=== PATIENT | female | born 1960 | race African-American/Black ===

== ENCOUNTER 2017-05-02 15:39 | Inpatient (IN) | payer OTHER ==
--- NOTE | 2017-05-02 20:31 | HP ---
CIWA Score - CIWA Score Nausea/Vomitin-Mild Nausea/No Vomiting Muscle Tremors: 4-Moderate,w/Arms Extend Anxiety: 4-Mod. Anxious/Guarded Agitation: 4-Moderately Restless Paroxysmal Sweats: 1-Minimal Palms Moist Orientation: 1-Uncertain about Date Tacttile Disturbances: 0-None Auditory Disturbances: 0-None Visual Disturbances: 0-None Headache: 0-None Present CIWA-Ar Total Score: 15 Admission ROS S - HPI Chief Complaint: WITHDRAWAL SX Allergies/Adverse Reactions: Allergies Allergy/AdvReac Type Severity Reaction Status Date / Time No Known Drug Allergies Allergy Verified 05/02/17 20:08 NKA Allergy Uncoded 05/02/17 20:08 History of Present Illness: 56 YEARS OLD FEMALE WITH LONG HISTORY OF ALCOHOL COCAINE NICOTINE DEPENDENCE DENIES MEDICAL ISSUE HAS DEPRESSION IS ADMITTED TO DETOX Exam Limitations: No Limitations - Ebola screening Have you traveled outside of the country in the last 21 days: No Have you had contact with anyone from an Ebola affected area: No Have you been sick,other than usual withdrawal symptoms: No Do you have a fever: No - Review of Systems Constitutional: Chills, Loss of Appetite, Changes in sleep, Unintentional Wgt. Loss, Unexplained wgt Loss EENT: reports: Other (EYE GLASSES) Respiratory: reports: No Symptoms reported Cardiac: reports: No Symptoms Reported GI: reports: Nausea, Poor Fluid Intake, Abdominal cramping : reports: No Symptoms Reported Musculoskeletal: reports: No Symptoms Reported Integumentary: reports: No Symptoms Reported Neuro: reports: Tremors Endocrine: reports: No Symptoms Reported Hematology: reports: No Symptoms Reported Psychiatric: reports: Judgement Intact, Depressed Other Systems: Reviewed and Negative Patient History - Patient Medical History Hx Anemia: No Hx Asthma: No Hx Chronic Obstructive Pulmonary Disease (COPD): No Hx Cancer: No Hx Cardiac Disorders: No Hx Congestive Heart Failure: No Hx Hypertension: No Hx Hypercholesterolemia: No Hx Pacemaker: No HX Cerebrovascular Accident: No Hx Seizures: No Hx Dementia: No Hx Diabetes: No Hx Gastrointestinal Disorders: No Hx Liver Disease: No Hx Genitourinary Disorders: No Hx Sexually Transmitted Disorders: No Hx Renal Disease (ESRD): No Hx Thyroid Disease: No Hx Human Immunodeficiency Virus (HIV): No Hx Hepatitis C: No Hx Depression: Yes Hx Suicide Attempt: No Hx Bipolar Disorder: No Hx Schizophrenia: No - Patient Surgical History Past Surgical History: Yes Hx Neurologic Surgery: No Hx Cataract Extraction: Yes (rt eye 03/2017) Hx Cardiac Surgery: No Hx Lung Surgery: No Hx Breast Surgery: No Hx Breast Biopsy: No Hx Abdominal Surgery: No Hx Appendectomy: No Hx Cholecystectomy: No Hx Genitourinary Surgery: No Hx Section: No Hx Orthopedic Surgery: No Hx Hysterectomy: No Anesthesia Reaction: No - PPD History Previous Implant?: No Documented Results: Negative w/proof Implanted On Prior [facility] Admission?: No PPD to be Administered?: Yes - Reproductive History Patient is a Female of Child Bearing Age (11 -55 yrs old): No Patient : No - Smoking Cessation Smoking history: Current every day smoker Have you smoked in the past 12 months: Yes Aproximately how many cigarettes per day: 20 Cigars Per Day: 0 Hx Chewing Tobacco Use: No Initiated information on smoking cessation: Yes 'Breaking Loose' booklet given: 05/02/17 - Substance & Tx. History Hx Alcohol Use: Yes Hx Substance Use: Yes Substance Use Type: Alcohol, Cocaine Hx Substance Use Treatment: Yes - Substances Abused Alcohol Route: Oral Frequency: Daily Amount used: beer- 12cans , liquor- 3pts Age of first use: 9 Date of Last Use: 05/02/17 Crack Route: Smoking Frequency: 1-2 times per week Amount used: $90- 9bags Age of first use: 23 Date of Last Use: 05/02/17 Family Disease History - Family Disease History Family Disease History: Heart Disease: Father (), Other: Father Admission Physical Exam BHS - Vital Signs Vital Signs: Vital Signs - 24 hr 05/02/17 16:59 Temperature 96 F L Pulse Rate 114 H Respiratory 20 Rate Blood Pressure 115/93 - Physical General Appearance: Yes: Nourished, Appropriately Dressed, Mild Distress, Alcohol on Breath, Tremorous, Irritable, Sweating, Anxious HEENTM: Yes: Hearing grossly Normal, Normal ENT Inspection, Normocephalic, Normal Voice Respiratory: Yes: Chest Non-Tender, Lungs Clear, Normal Breath Sounds, No Respiratory Distress, No Accessory Muscle Use Neck: Yes: Supple, Trachea in good position Breast: Yes: Breasts Symetrical Cardiology: Yes: Regular Rhythm, S1, S2, Tachycardia Abdominal: Yes: Non Tender, Soft Genitourinary: Yes: Within Normal Limits Back: Yes: Normal Inspection Musculoskeletal: Yes: Gait Steady (CANE), Back pain, Muscle Pain (LEFT LEG), Muscle weakness (LEFT LEG) Extremities: Yes: Non-Tender, Tremors, Other (LEFT LEG ARTHRITIS) Neurological: Yes: Alert, Normal Mood/Affect, Normal Response Integumentary: Yes: Warm Lymphatic: Yes: Within Normal Limits - Diagnostic (1) Alcohol dependence with uncomplicated withdrawal Current Visit: Yes Status: Acute (2) Nicotine dependence Current Visit: Yes Status: Acute Qualifiers: Nicotine product type: cigarettes Substance use status: in withdrawal Qualified Code(s): F17.213 - Nicotine dependence, cigarettes, with withdrawal (3) Depression Current Visit: Yes Status: Suspected Qualifiers: Depression Type: dysthymia Qualified Code(s): F34.1 - Dysthymic disorder (4) Use of cane as ambulatory aid Current Visit: Yes Status: Chronic Cleared for Admission [facility] - Detox or Rehab [facility] Level of Care: Medically Managed Detox Regimen/Protocol: Librium [facility] Breath Alcohol Content Breath Alcohol Content: 0.105 Vital Signs - Height Height: 5 ft 2 in - Weight Weight: 158 lb Weight Measurement Method: Standing Scale Body Mass Index (BMI): 28.9 - Bowel Function Bowel Movement: Yes Urine Pregancy Test - Result Urine Test Results: Negative- NO Line Present Urine Drug Screen - Results Drug Screen Negative: No Urine Drug Screen Results: LEWIS-Cocaine
[2017-05-02 20:37] VITALS: BMI 28.9
[2017-05-02] MEDS ORDERED: MAG HYDROX/AL HYDROX/SIMETH 30 ML UNIT-DOSE CUP PO PRN (20:39)
[2017-05-02] MEDS ORDERED: MENTHOL/PHENOL 1 EACH UD MM PRN (20:39)
[2017-05-02] MEDS ORDERED: NICOTINE POLACRILEX 4 MG GUM BC PRN (20:39)
[2017-05-02] MEDS ORDERED: chlordiazePOXIDE HCL 25 MG CAPSULE PO PRN (20:39)
[2017-05-02] MEDS ORDERED: LOPERAMIDE HCL 2 MG CAPSULE PO PRN (20:39)
[2017-05-02] MEDS ORDERED: P-EPHED 60MG/TRIPROLIDI 2.5MG TABLET PO PRN (20:39)
[2017-05-02] MEDS ORDERED: ACETAMINOPHEN 325 MG TABLET (FP) PO PRN (20:39)
[2017-05-02] MEDS ORDERED: chlordiazePOXIDE HCL 25 MG CAPSULE PO ONE (20:39)
[2017-05-02] MEDS ORDERED: guaiFENesin/D-METHORPHAN HB 10 ML UNIT-DOSE CUPS PO PRN (20:39)
[2017-05-02] MEDS ORDERED: MAGNESIUM CITRATE 300 ML BOTTLE PO PRN (20:39)
[2017-05-02] MEDS ORDERED: hydrOXYzine PAMOATE 50 MG CAPSULE (FP) PO PRN (20:39)
[2017-05-02] MEDS ORDERED: MAGNESIUM HYDROX 2400MG/30ML ORAL SUSPENSION 30 ML CUP PO PRN (20:39)
[2017-05-02] MEDS ORDERED: IBUPROFEN 400 MG TABLET (FP) PO PRN (20:39)
[2017-05-02 22:44] LABS: URINE APPEARANCE CLEAR; URINE BILIRUBIN NEGATIVE (NEGATIVE); URINE COLOR YELLOW; URINE GLUCOSE (UA) NEGATIVE (NEGATIVE); URINE KETONE NEGATIVE (NEGATIVE); URINE NITRITE NEGATIVE (NEGATIVE); URINE PROTEIN NEGATIVE (NEGATIVE); URINE UROBILINOGEN NEGATIVE E.U./dl (0.2-1.0)
[2017-05-02 22:45] LABS: URINE BLOOD 1+ (NEGATIVE); URINE LEUK ESTERASE TRACE (NEGATIVE)
[2017-05-02] MEDS: chlordiazePOXIDE HCL 25 MG CAPSULE PO SCH (22:47)
[2017-05-02 22:48] LABS: URINE BACTERIA MANY /hpf (NONE SEEN); URINE MUCUS RARE; URINE WBC 8 /hpf (3-5)
[2017-05-02] MEDS: THIAMINE HCL 100 MG TABLET (FP) PO SCH (22:48)
[2017-05-03] MEDS: chlordiazePOXIDE HCL 25 MG CAPSULE PO SCH ×4 (05:28→22:15)
--- NOTE | 2017-05-03 09:53 | EKG ---
Test Reason : Blood Pressure : / mmHG Vent. Rate : 081 BPM Atrial Rate : 081 BPM P-R Int : 170 ms QRS Dur : 060 ms QT Int : 380 ms P-R-T Axes : 073 046 046 degrees QTc Int : 441 ms NORMAL SINUS RHYTHM POOR DATA QUALITY, INTERPRETATION MAY BE ADVERSELY AFFECTED NO PREVIOUS ECGS AVAILABLE Confirmed by NAS BERRY MD ([id number]) on 05/03/2017 9:52:52 AM Referred By: Confirmed By:NAS BERRY MD
[2017-05-03 10:18] LABS: MCH 25.7 pg (25.7-33.7); MCHC 31.2 g/dl (32.0-36.0); MEAN CELL VOLUME 82.4 fl (80-96); MEAN PLT VOLUME 8.2 fl (7.5-11.1); PLATELET COUNT 249 K/MM3 (134-434); RDW 15.3 % (11.6-15.6); WHITE BLOOD COUNT 6.3 K/mm3 (4.0-10.0)
[2017-05-03] MEDS: PRENATAL VITAMINS W/ FOLIC ACID TABLET (FP) PO SCH (10:30)
[2017-05-03] MEDS: NICOTINE 21 MG/24 HOURS TOPICAL PATCH TD SCH (10:31)
[2017-05-03 10:44] LABS: ALBUMIN 3.5 g/dl (3.4-5.0); ALK PHOS 85 U/L (45-117); ANION GAP 10 (8-16); BILIRUBIN,TOTAL 0.2 mg/dL (0.2-1.0); CALCIUM 8.8 mg/dL (8.5-10.1); CO2 25 mmol/L (21-32); CREATININE 0.9 mg/dL (0.55-1.02); GLUCOSE,RANDOM 93 mg/dL (74-106); SGOT/AST 29 U/L (15-37); SGPT/ALT 60 U/L (12-78); TOT PROT 6.5 g/dl (6.4-8.2)
--- NOTE | 2017-05-03 10:53 | PN ---
S CIWA - CIWA Score Nausea/Vomitin-No Nausea/No Vomiting Muscle Tremors: 4-Moderate,w/Arms Extend Anxiety: 3 Agitation: 4-Moderately Restless Paroxysmal Sweats: 3 Orientation: 0-Oriented Tacttile Disturbances: 0-None Auditory Disturbances: 0-None Visual Disturbances: 0-None Headache: 0-None Present CIWA-Ar Total Score: 14 BHS Progress Note (SOAP) Subjective: body aches sweats interrupted sleep agitation Objective: 05/03/17 11:03 Vital Signs Temperature 98.2 F 05/03/17 10:15 Pulse Rate 78 05/03/17 10:15 Respiratory Rate 18 05/03/17 10:15 Blood Pressure 114/76 05/03/17 10:15 O2 Sat by Pulse Oximetry (%) Laboratory Tests 05/02/17 05/03/17 05/03/17 21:34 07:50 07:50 WBC 6.3 RBC 4.58 Hgb 11.8 Hct 37.8 MCV 82.4 MCHC 31.2 L RDW 15.3 Plt Count 249 MPV 8.2 Sodium 142 Potassium 4.0 Chloride 107 Carbon Dioxide 25 Anion Gap 10 BUN 13 Creatinine 0.9 Creat Clearance w eGFR > 60 Random Glucose 93 Calcium 8.8 Total Bilirubin 0.2 AST 29 ALT 60 Alkaline Phosphatase 85 Total Protein 6.5 Albumin 3.5 Urine Color Yellow Urine Appearance Clear Urine pH 5.0 Ur Specific [place] 1.015 Urine Protein Negative Urine Glucose (UA) Negative Urine Ketones Negative Urine Blood 1+ H Urine Nitrite Negative Urine Bilirubin Negative Urine Urobilinogen Negative Ur Leukocyte Esterase Trace H Urine RBC None Urine WBC 8 Ur Epithelial Cells Rare Urine Bacteria Many Urine Mucus Rare awake/alert ambulating no acute distress Assessment: 05/03/17 11:03 withdrawal sx Plan: continue detox increase fluids
--- NOTE | 2017-05-03 17:53 | CONSULT ---
[facility] Psychiatric Consult - Data Date of interview: 05/03/17 Admission source: [facility] Identifying data: First admission to [facility] for this 56 y/o AA female seeking detox treatment for alcohol and cocaine dependence.Patient is ,a mother of four,domiciled,unemployed and supported on Public Assistance. Substance Abuse History: - Smoking Cessation. Smoking history: Current every day smoker. Have you smoked in the past 12 months: Yes. Aproximately how many cigarettes per day: 20. Cigars Per Day: 0. Hx Chewing Tobacco Use: No. Initiated information on smoking cessation: Yes. 'Breaking Loose' booklet given : 05/02/17. - Substance & Tx. History. Hx Alcohol Use: Yes. Hx Substance Use : Yes. Substance Use Type: Alcohol, Cocaine. Hx Substance Use Treatment: Yes. - Substances Abused. Alcohol. Route: Oral. Frequency: Daily. Amount used: beer- 12cans , liquor- 3pts. Age of first use: 9. Date of Last Use: 12/18. Crack. Route: Smoking. Frequency: 1-2 times per week. Amount used : $90- 9bags. Age of first use: 23. Date of Last Use: 05/02/17. Drug Screen Negative: Yes. Confirmed by the patient. 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 Psychiatric History: No reported history of psychiatric hospitalizations (only CPEP visits at [facility]).No history of OPD care.Ms Nunez denies history of suicide attempts. Physical/Sexual Abuse/Trauma History: Patient denies history of abuse. Mental Status Exam - Mental Status Exam Alert and Oriented to: Time, Place, Person Cognitive Function: Good Patient Appearance: Well Groomed Mood: Hopeful, Euthymic Affect: Normal Range Patient Behavior: Fatigued, Appropriate, Cooperative Speech Pattern: Clear Voice Loudness: Normal Thought Process: Goal Oriented Thought Disorder: Not Present Hallucinations: Denies Suicidal Ideation: Denies Homicidal Ideation: Denies Insight/Judgement: Poor Sleep: Fair Appetite: Good Muscle strength/Tone: Normal Gait/Station: Normal Psychiatric Findings - Problem List ([place] 1, 2,3) (1) Alcohol dependence with uncomplicated withdrawal Current Visit: Yes Status: Acute (2) Cocaine dependence Current Visit: Yes Status: Acute (3) Nicotine dependence Current Visit: Yes Status: Acute Qualifiers: Nicotine product type: cigarettes Substance use status: in withdrawal Qualified Code(s): F17.213 - Nicotine dependence, cigarettes, with withdrawal (4) Substance induced mood disorder Current Visit: Yes Status: Acute (5) Use of cane as ambulatory aid Current Visit: Yes Status: Chronic - Initial Treatment Plan Initial Treatment Plan: Psychoeducation.Detoxification.Observation.
[2017-05-03] MEDS: THIAMINE HCL 100 MG TABLET (FP) PO SCH (22:14)
[2017-05-03] MEDS: diphenhydrAMINE HCL 50 MG CAPSULE PO PRN (22:15)
[2017-05-04] MEDS: chlordiazePOXIDE HCL 25 MG CAPSULE PO SCH ×3 (05:28→17:28)
[2017-05-04] MEDS: PRENATAL VITAMINS W/ FOLIC ACID TABLET (FP) PO SCH (10:40)
[2017-05-04] MEDS: NICOTINE 21 MG/24 HOURS TOPICAL PATCH TD SCH (10:41)
--- NOTE | 2017-05-04 15:49 | PN ---
[facility] CIWA - CIWA Score Nausea/Vomitin-No Nausea/No Vomiting Muscle Tremors: 3 Anxiety: 4-Mod. Anxious/Guarded Agitation: 3 Paroxysmal Sweats: 3 Orientation: 0-Oriented Tacttile Disturbances: 0-None Auditory Disturbances: 0-None Visual Disturbances: 0-None Headache: 0-None Present CIWA-Ar Total Score: 13 S Progress Note (SOAP) Subjective: Sweating,interrupted sleep,anxiety,tremors,restless. Objective: 05/04/17 15:48 Vital Signs - 8 hr 05/04/17 05/04/17 10:00 14:22 Temperature 98.4 F 97.9 F Pulse Rate 87 90 Respiratory 18 18 Rate Blood Pressure 125/72 130/79 Laboratory Last Values WBC 6.3 K/mm3 (4.0-10.0) 05/03/17 07:50 RBC 4.58 M/mm3 (3.60-5.2) 05/03/17 07:50 Hgb 11.8 GM/dL (10.7-15.3) 05/03/17 07:50 Hct 37.8 % (32.4-45.2) 05/03/17 07:50 MCV 82.4 fl (80-96) 05/03/17 07:50 MCHC 31.2 g/dl (32.0-36.0) L 05/03/17 07:50 RDW 15.3 % (11.6-15.6) 05/03/17 07:50 Plt Count 249 K/MM3 (134-434) 05/03/17 07:50 MPV 8.2 fl (7.5-11.1) 05/03/17 07:50 Sodium 142 mmol/L (136-145) 05/03/17 07:50 Potassium 4.0 mmol/L (3.5-5.1) 05/03/17 07:50 Chloride 107 mmol/L (98-107) 05/03/17 07:50 Carbon Dioxide 25 mmol/L (21-32) 05/03/17 07:50 Anion Gap 10 (8-16) 05/03/17 07:50 BUN 13 mg/dL (7-18) 05/03/17 07:50 Creatinine 0.9 mg/dL (0.55-1.02) 05/03/17 07:50 Creat Clearance w eGFR > 60 (>60) 05/03/17 07:50 Random Glucose 93 mg/dL (74-106) 05/03/17 07:50 Calcium 8.8 mg/dL (8.5-10.1) 05/03/17 07:50 Total Bilirubin 0.2 mg/dL (0.2-1.0) 05/03/17 07:50 AST 29 U/L (15-37) 05/03/17 07:50 ALT 60 U/L (12-78) 05/03/17 07:50 Alkaline Phosphatase 85 U/L (45-117) 05/03/17 07:50 Total Protein 6.5 g/dl (6.4-8.2) 05/03/17 07:50 Albumin 3.5 g/dl (3.4-5.0) 05/03/17 07:50 Urine Color Yellow 05/02/17 21:34 Urine Appearance Clear 05/02/17 21:34 Urine pH 5.0 (5.0-8.0) 05/02/17 21:34 Ur Specific [place] 1.015 (1.005-1.025) 05/02/17 21:34 Urine Protein Negative (NEGATIVE) 05/02/17 21:34 Urine Glucose (UA) Negative (NEGATIVE) 05/02/17 21:34 Urine Ketones Negative (NEGATIVE) 05/02/17 21:34 Urine Blood 1+ (NEGATIVE) H 05/02/17 21:34 Urine Nitrite Negative (NEGATIVE) 05/02/17 21:34 Urine Bilirubin Negative (NEGATIVE) 05/02/17 21:34 Urine Urobilinogen Negative E.U./dl (0.2-1.0) 05/02/17 21:34 Ur Leukocyte Esterase Trace (NEGATIVE) H 05/02/17 21:34 Urine RBC None /hpf (0-3) 05/02/17 21:34 Urine WBC 8 /hpf (3-5) 05/02/17 21:34 Ur Epithelial Cells Rare /hpf (FEW) 05/02/17 21:34 Urine Bacteria Many /hpf (NONE SEEN) 05/02/17 21:34 Urine Mucus Rare 05/02/17 21:34 RPR Titer Nonreactive (NONREACTIVE) 05/03/17 07:50 labs noted Assessment: 05/04/17 15:48 Withdrawal sx. Plan: Continue detox
[2017-05-04] MEDS: THIAMINE HCL 100 MG TABLET (FP) PO SCH (22:15)
[2017-05-04] MEDS: chlordiazePOXIDE 5 MG CAPSULE PO SCH (22:15)
[2017-05-05] MEDS: chlordiazePOXIDE 5 MG CAPSULE PO SCH ×3 (05:40→17:33)
[2017-05-05] MEDS: PRENATAL VITAMINS W/ FOLIC ACID TABLET (FP) PO SCH (10:05)
[2017-05-05] MEDS: NICOTINE 21 MG/24 HOURS TOPICAL PATCH TD SCH (10:07)
[2017-05-05 11:16] LABS: URINE APPEARANCE CLEAR; URINE BILIRUBIN NEGATIVE (NEGATIVE); URINE BLOOD NEGATIVE (NEGATIVE); URINE COLOR LTYELLOW; URINE GLUCOSE (UA) NEGATIVE (NEGATIVE); URINE KETONE NEGATIVE (NEGATIVE); URINE NITRITE NEGATIVE (NEGATIVE); URINE PROTEIN NEGATIVE (NEGATIVE); URINE UROBILINOGEN NEGATIVE E.U./dl (0.2-1.0)
[2017-05-05 11:35] LABS: URINE LEUK ESTERASE TRACE (NEGATIVE)
[2017-05-05 11:37] LABS: URINE BACTERIA MANY /hpf (NONE SEEN); URINE RBC 1 /hpf (0-3); URINE WBC 3 /hpf (3-5)
--- NOTE | 2017-05-05 12:10 | PN ---
BHS Progress Note (SOAP) Subjective: Sweating,interrupted sleep,restless Objective: 05/05/17 12:06 Vital Signs - 8 hr 05/05/17 05/05/17 06:00 09:56 Temperature 98.1 F 97.7 F Pulse Rate 89 97 H Respiratory 18 18 Rate Blood Pressure 126/75 118/65 Laboratory Tests 05/02/17 05/03/17 05/03/17 21:34 07:50 07:50 WBC 6.3 RBC 4.58 Hgb 11.8 Hct 37.8 MCV 82.4 MCHC 31.2 L RDW 15.3 Plt Count 249 MPV 8.2 Sodium 142 Potassium 4.0 Chloride 107 Carbon Dioxide 25 Anion Gap 10 BUN 13 Creatinine 0.9 Creat Clearance w eGFR > 60 Random Glucose 93 Calcium 8.8 Total Bilirubin 0.2 AST 29 ALT 60 Alkaline Phosphatase 85 Total Protein 6.5 Albumin 3.5 Urine Color Yellow Urine Appearance Clear Urine pH 5.0 Ur Specific [place] 1.015 Urine Protein Negative Urine Glucose (UA) Negative Urine Ketones Negative Urine Blood 1+ H Urine Nitrite Negative Urine Bilirubin Negative Urine Urobilinogen Negative Ur Leukocyte Esterase Trace H Urine RBC None Urine WBC 8 Ur Epithelial Cells Rare Urine Bacteria Many Urine Mucus Rare RPR Titer 05/03/17 05/05/17 07:50 07:45 WBC RBC Hgb Hct MCV MCHC RDW Plt Count MPV Sodium Potassium Chloride Carbon Dioxide Anion Gap BUN Creatinine Creat Clearance w eGFR Random Glucose Calcium Total Bilirubin AST ALT Alkaline Phosphatase Total Protein Albumin Urine Color L[place] Urine Appearance Clear Urine pH 5.0 Ur Specific [place] Urine Protein Negative Urine Glucose (UA) Negative Urine Ketones Negative Urine Blood Negative Urine Nitrite Negative Urine Bilirubin Negative Urine Urobilinogen Negative Ur Leukocyte Esterase Trace H Urine RBC 1 Urine WBC 3 Ur Epithelial Cells Urine Bacteria Many Urine Mucus RPR Titer Nonreactive labs noted Assessment: 05/05/17 12:07 Withdrawal sx. R/O UTI Plan: Continue detox pyridium 200mg daily
[2017-05-05] MEDS ORDERED: PHENAZOPYRIDINE HCL 100 MG TABLET (FP) PO SCH (13:00)
[2017-05-05] MEDS: PHENAZOPYRIDINE HCL 100 MG TABLET (FP) PO SCH (17:37)
[2017-05-05] MEDS: diphenhydrAMINE HCL 50 MG CAPSULE PO PRN (22:16)
[2017-05-05] MEDS: THIAMINE HCL 100 MG TABLET (FP) PO SCH (22:16)
[2017-05-05] MEDS: chlordiazePOXIDE HCL 10 MG CAPSULE PO SCH (22:16)
[2017-05-06] MEDS: chlordiazePOXIDE HCL 10 MG CAPSULE PO SCH ×2 (05:11→10:26)
--- NOTE | 2017-05-06 08:19 | DS ---
[facility] Detox Discharge Summary Admission Date: 05/02/17 Discharge Date: 05/06/17 - History Present History: Alcohol Dependence, Cocaine Dependence - Physical Exam Results Vital Signs: Vital Signs Temperature 96.8 F L 05/06/17 06:43 Pulse Rate 89 05/06/17 06:43 Respiratory Rate 20 05/06/17 06:43 Blood Pressure 107/75 05/06/17 06:43 O2 Sat by Pulse Oximetry (%) - Treatment Hospital Course: Detox Protocol Followed, Detoxed Safely, Responded well, Discharged Condition Good, Rehab Referral Accepted - Medication Discharge Medications: Ambulatory Orders NK [No Known Home Medication] 05/02/17 - Diagnosis (1) Alcohol dependence with uncomplicated withdrawal Current Visit: Yes Status: Chronic (2) Cocaine dependence Current Visit: Yes Status: Chronic Qualifiers: Substance use status: uncomplicated Qualified Code(s): F14.20 - Cocaine dependence, uncomplicated (3) Nicotine dependence Current Visit: Yes Status: Chronic Qualifiers: Nicotine product type: cigarettes Substance use status: uncomplicated Qualified Code(s): F17.210 - Nicotine dependence, cigarettes, uncomplicated (4) Substance induced mood disorder Current Visit: Yes Status: Acute (5) Use of cane as ambulatory aid Current Visit: Yes Status: Chronic (6) Depression Current Visit: Yes Status: Suspected Qualifiers: Depression Type: dysthymia Qualified Code(s): F34.1 - Dysthymic disorder - AMA Did Patient Leave Against Medical Advice: No
[2017-05-06] MEDS: NICOTINE 21 MG/24 HOURS TOPICAL PATCH TD SCH (10:25)
[2017-05-06] MEDS: PHENAZOPYRIDINE HCL 100 MG TABLET (FP) PO SCH (10:26)
[2017-05-06] MEDS: PRENATAL VITAMINS W/ FOLIC ACID TABLET (FP) PO SCH (10:26)
[2017-05-06 10:29] VITALS: BP 137/85; PULSE 95; TEMP 96.7
== END 2017-05-06 11:45 | disposition other institution (70) | DRG 774 ==
LOC: YASAS 15:39 → Y6N 20:36
PROVIDERS: ADMIT Internal Medicine; ATTEND Internal Medicine
PROC: HZ2ZZZZ Detoxification Services for Substance Abuse Treatment (ICD-10-PCS; principal; 2017-05-06)
DX: F10.230 Alcohol dependence with withdrawal, uncomplicated (principal); F14.20 Cocaine dependence, uncomplicated; F17.210 Nicotine dependence, cigarettes, uncomplicated; F19.24 Other psychoactive substance dependence with psychoactive substance-induced mood disorder; F34.1 Dysthymic disorder; R26.89 Other abnormalities of gait and mobility; Z99.89 Dependence on other enabling machines and devices
CPT/HCPCS: 36415; 80053; 81003; 81015; 85027; 86593; 87086; 87186; 93005; 93010

== ENCOUNTER 2017-05-06 12:04 | Inpatient (IN) | payer OTHER ==
--- NOTE | 2017-05-06 14:03 | HP ---
Psychiatrist Admission - Data Date of interview: 05/06/17 Admission source: [address] [place] [address] Identifying data: This is the first admission to [address] [place] [address] for this 56 years old AA ,mother of 4 grown children, resides with ,supported by [place]. Medical History: Blindness of R eye (cataract removal). Psychiatric History: denies previous psychiatric history Physical/Sexual Abuse/Trauma History: denies Vital Signs: Vital Signs - 24 hr 05/06/17 12:51 Temperature 97.8 F Pulse Rate 98 H Respiratory 18 Rate Blood Pressure 101/70 Allergies/Adverse Reactions: Allergies Allergy/AdvReac Type Severity Reaction Status Date / Time No Known Drug Allergies Allergy Verified 05/02/17 20:08 NKA Allergy Uncoded 05/02/17 20:08 Date of last physical exam: 05/02/17 Concur with the findings of this exam: Yes - Substance Abuse/Tx History Hx Alcohol Use: Yes (reports drinking since 9 yo,heavy drinker) Hx Substance Use: Yes (cocaine since 23 yo,daily user recently) Substance Use Type: Alcohol, Cocaine Hx Substance Use Treatment: Yes (completed intermission coordinator inpatient 10 yo,longest abstinence 3-4 years) - Admission Criteria Previous failed treatment: Yes Poor recovery environment: Yes Comorbidities: Yes Lacks judgement: Yes Mental Status Exam - Mental Status Exam Alert and Oriented to: Time, Place, Person Cognitive Function: Grossly Intact Patient Appearance: Well Groomed Mood: Sad Affect: Labile Patient Behavior: Cooperative Speech Pattern: Clear Voice Loudness: Normal Thought Process: Goal Oriented Thought Disorder: Not Present Hallucinations: Denies Suicidal Ideation: Denies Homicidal Ideation: Denies Insight/Judgement: Fair Sleep: Fair Appetite: Good Muscle strength/Tone: Normal Gait/Station: Normal Psychiatric Findings - Problem List ([place] 1, 2,3) (1) Substance induced mood disorder Current Visit: Yes Status: Chronic (2) Alcohol dependence with uncomplicated withdrawal Current Visit: Yes Status: Chronic (3) Cocaine dependence Current Visit: Yes Status: Chronic Qualifiers: (4) Nicotine dependence Current Visit: Yes Status: Chronic Qualifiers: - Initial Treatment Plan Initial Treatment Plan: Will monitor progress.
[2017-05-06] MEDS ORDERED: ACETAMINOPHEN 325 MG TABLET (FP) PO PRN (14:10)
[2017-05-06] MEDS ORDERED: P-EPHED 60MG/TRIPROLIDI 2.5MG TABLET PO PRN (14:10)
[2017-05-06] MEDS ORDERED: NICOTINE POLACRILEX 2 MG GUM BUC PRN (14:10)
[2017-05-06] MEDS ORDERED: MAGNESIUM HYDROX 2400MG/30ML ORAL SUSPENSION 30 ML CUP PO PRN (14:10)
[2017-05-06] MEDS ORDERED: guaiFENesin/D-METHORPHAN HB 10 ML UNIT-DOSE CUPS PO PRN (14:10)
[2017-05-06] MEDS ORDERED: MAGNESIUM CITRATE 300 ML BOTTLE PO PRN (14:10)
[2017-05-06] MEDS ORDERED: MAG HYDROX/AL HYDROX/SIMETH 30 ML UNIT-DOSE CUP PO PRN (14:10)
[2017-05-06] MEDS ORDERED: LOPERAMIDE HCL 2 MG CAPSULE PO PRN (14:10)
[2017-05-06] MEDS ORDERED: MENTHOL/PHENOL 1 EACH UD MM PRN (14:10)
[2017-05-06] MEDS ORDERED: diphenhydrAMINE HCL 50 MG CAPSULE PO PRN (14:10)
--- NOTE | 2017-05-06 14:16 | HP ---
<Yuliet Yanez - Last Filed: 05/06/17 16:20> [facility] Rehab Assess/Revision - Vital signs Vital Signs: Vital Signs Period Temp Pulse Resp BP Sys/Adame Pulse Ox Last 24 Hr 97.8 F 98 18 101/70 <Chris De - Last Filed: 05/08/17 12:16> [facility] Rehab Assess/Revision - Admission History Admitted to Rehab from: [facility] [place] Date of Admission to Rehab: 05/06/17 - Vital signs Vital Signs: Vital Signs Period Temp Pulse Resp BP Sys/Adame Pulse Ox Last 24 Hr 97.8 F 98 18 101/70 - Findings Detox History & Physical reviewed: Yes Concur with findings: Yes
[2017-05-06] MEDS: IBUPROFEN 400 MG TABLET (FP) PO PRN (18:40)
[2017-05-06] MEDS: SULFAMETHOXAZOLE/TRIMETHOPRIM 800MG/160MG D.S. TABLET PO SCH (21:19)
[2017-05-06] MEDS: CALCIUM 500MG/VIT-D 200 UNITS COMBO TABLET (FP) PO SCH (21:19)
[2017-05-06] MEDS: THIAMINE HCL 100 MG TABLET (FP) PO SCH (21:19)
[2017-05-07] MEDS: PHENAZOPYRIDINE HCL 100 MG TABLET (FP) PO SCH ×3 (10:10→18:30)
[2017-05-07] MEDS: NICOTINE 21 MG/24 HOURS TOPICAL PATCH TD SCH (10:10)
[2017-05-07] MEDS: SULFAMETHOXAZOLE/TRIMETHOPRIM 800MG/160MG D.S. TABLET PO SCH ×2 (10:10→21:17)
[2017-05-07] MEDS: PRENATAL VITAMINS W/ FOLIC ACID TABLET (FP) PO SCH (10:10)
[2017-05-07] MEDS: CALCIUM 500MG/VIT-D 200 UNITS COMBO TABLET (FP) PO SCH ×2 (10:10→21:17)
[2017-05-07] MEDS ORDERED: PT OWN MED DRAWER 7, Y5N ONE (11:47)
[2017-05-07] MEDS ORDERED: PNEUMOCOCCAL 23 VACCINE 0.5 ML VIAL IM ONE (12:00)
[2017-05-07] MEDS ORDERED: PNEUMOC 13-VAL CONJ-DIP CRM/PF 0.5 ML DISP.SYRIN IM ONE (12:28)
[2017-05-07] MEDS: THIAMINE HCL 100 MG TABLET (FP) PO SCH (21:18)
[2017-05-08] MEDS: IBUPROFEN 400 MG TABLET (FP) PO PRN (06:21)
[2017-05-08] MEDS: PHENAZOPYRIDINE HCL 100 MG TABLET (FP) PO SCH ×3 (10:00→18:20)
[2017-05-08] MEDS: SULFAMETHOXAZOLE/TRIMETHOPRIM 800MG/160MG D.S. TABLET PO SCH ×2 (10:11→21:16)
[2017-05-08] MEDS: CALCIUM 500MG/VIT-D 200 UNITS COMBO TABLET (FP) PO SCH ×2 (10:11→21:16)
[2017-05-08] MEDS: PRENATAL VITAMINS W/ FOLIC ACID TABLET (FP) PO SCH (10:11)
[2017-05-08] MEDS: NICOTINE 21 MG/24 HOURS TOPICAL PATCH TD SCH (10:12)
--- NOTE | 2017-05-08 14:35 | PN ---
BHS Progress Note Note: Pain left 1st toe Exam : Small blister like on lateral side of 1st toe left foot. P : Bacitracin oin't
[2017-05-08 14:55] LABS: HIV 1 & 2 AB NEGATIVE; HIV 1 AGp24 NEGATIVE
[2017-05-08] MEDS ORDERED: BACITRACIN 0.9 GM PACKET TP ONE (14:56)
--- NOTE | 2017-05-08 15:22 | PN ---
Psychiatric Progress Note Vital Signs: Vital Signs Period Temp Pulse Resp BP Sys/Adame Pulse Ox Last 24 Hr 97.6 F 92 18-18 113/78 Date of Session: 05/08/17 Chief Complaint:: Ed not sleeping all night long." HPI: Patient addressed alcohol and Cocaine dependence comorbid with Substance induced mood disorder. ROS: unremarkable Current Medications: Active Medications Generic Name Dose Route Start Last Admin Trade Name Freq PRN Reason Stop Dose Admin Acetaminophen 650 mg 05/06/17 14:10 Tylenol - PO Q4H PRN FEVER OR PAIN Al Hydroxide/Mg Hydroxide 30 ml 05/06/17 14:10 Mylanta Oral Suspension - PO Q6H PRN DYSPEPSIA Bacitracin 0.9 gm 05/08/17 22:00 Bacitracin - TP BID ESTEFANY Calcium Carbonate/Cholecalciferol 1 tab 05/06/17 22:00 05/08/17 10:11 Os-Jeff 500+D - PO 1 tab BID ESTEFANY Administration Diphenhydramine HCl 50 mg 05/06/17 14:10 05/07/17 21:17 Benadryl - PO 50 mg HSMR1 PRN Administration FOR ITCHING Eucalyptus/Menthol/Phenol/Sorbitol 1 each 05/06/17 14:10 Cepastat Lozenge - MM Q4H PRN SORE THROAT Guaifenesin 10 ml 05/06/17 14:10 Robitussin Dm - PO Q6H PRN COUGH Ibuprofen 800 mg 05/08/17 14:32 Motrin - PO Q6H PRN PAIN Loperamide HCl 4 mg 05/06/17 14:10 Imodium - PO Q6H PRN DIARRHEA Magnesium Hydroxide 30 ml 05/06/17 14:10 Milk Of Magnesia - PO DAILY PRN CONSTIPATION Nicotine 21 mg 05/07/17 10:00 05/08/17 10:12 Nicoderm Patch - TD 21 mg DAILY ESTEFANY Administration Nicotine Polacrilex 2 mg 05/06/17 14:10 Nicorette Gum - BUC Q2H PRN NICOTINE REPLACEMENT RX Phenazopyridine HCl 100 mg 05/07/17 10:00 05/08/17 12:02 Pyridium - PO 100 mg PC ESTEFANY Administration Multivit/Folic Acid/Iron 1 tab 05/07/17 10:00 05/08/17 10:11 Vitamins (Sjr) - PO 1 tab DAILY ESTEFANY Administration Pseudoephedrine/Triprolidine 1 combo 05/06/17 14:10 Actifed - PO TID PRN NASAL CONGESTION Thiamine HCl 100 mg 05/06/17 22:00 05/07/17 21:18 Vitamin B1 - PO 100 mg HS ESTEFANY Administration Trazodone HCl 100 mg 05/08/17 22:00 Desyrel - PO HS ESTEFANY Trimethoprim/Sulfamethoxazole 1 each 05/06/17 22:00 05/08/17 10:11 Bactrim Ds - PO 1 each BID ESTEFANY Administration Current Side Effect: No Lab tests ordered: No Lab tests reviewed: Yes Provider note:: Samson was revuewed,patient was evaluated in my office today due to ongoing sleeping difficulties.according to her it takes time to fall asleep and still sleep is very interrupted.She reports that she used to medicate herself with drugs and alcohol to struggle with sleeping difficulties.Properties of Trazodone has been discussed with the patient including side effects,benefits and dose adjustment.Patient is willing to start Trazodone 100 mg po hs. Suppotive therapy provided. Total face to face time:: 30 Mental Status Exam - Mental Status Exam Alert and Oriented to: Time, Place, Person Cognitive Function: Grossly Intact Patient Appearance: Unkempt Mood: Anxious Affect: Mood Congruent, Labile Patient Behavior: Cooperative Speech Pattern: Clear Voice Loudness: Normal Thought Process: Goal Oriented Thought Disorder: Not Present Hallucinations: Denies Suicidal Ideation: Denies Homicidal Ideation: Denies Insight/Judgement: Fair Sleep: Fair Appetite: Good Muscle strength/Tone: Normal Gait/Station: Normal Psychiatric Treatment Plan - Problem List (1) Substance induced mood disorder Current Visit: Yes (2) Alcohol dependence with uncomplicated withdrawal Current Visit: Yes (3) Cocaine dependence Current Visit: Yes Qualifiers: (4) Nicotine dependence Current Visit: Yes Qualifiers:
[2017-05-08] MEDS ORDERED: PT OWN MED DRAWER 7, Y5N ONE (18:04)
[2017-05-08] MEDS: THIAMINE HCL 100 MG TABLET (FP) PO SCH (21:16)
[2017-05-08] MEDS: BACITRACIN 0.9 GM PACKET TP SCH (21:17)
[2017-05-08] MEDS: traZODone HCL 100 MG TABLET (FP) PO SCH (21:18)
[2017-05-09] MEDS: PHENAZOPYRIDINE HCL 100 MG TABLET (FP) PO SCH ×3 (09:58→18:25)
[2017-05-09] MEDS: NICOTINE 21 MG/24 HOURS TOPICAL PATCH TD SCH (09:59)
[2017-05-09] MEDS: SULFAMETHOXAZOLE/TRIMETHOPRIM 800MG/160MG D.S. TABLET PO SCH ×2 (09:59→21:08)
[2017-05-09] MEDS: PRENATAL VITAMINS W/ FOLIC ACID TABLET (FP) PO SCH (09:59)
[2017-05-09] MEDS: BACITRACIN 0.9 GM PACKET TP SCH ×2 (09:59→21:10)
[2017-05-09] MEDS: CALCIUM 500MG/VIT-D 200 UNITS COMBO TABLET (FP) PO SCH ×2 (10:00→21:08)
[2017-05-09] MEDS: THIAMINE HCL 100 MG TABLET (FP) PO SCH (21:08)
[2017-05-09] MEDS: traZODone HCL 100 MG TABLET (FP) PO SCH (21:08)
[2017-05-10] MEDS ORDERED: PT OWN MED DRAWER 7, Y5N ONE ×2 (08:18→16:50)
[2017-05-10] MEDS: CALCIUM 500MG/VIT-D 200 UNITS COMBO TABLET (FP) PO SCH ×2 (09:58→21:24)
[2017-05-10] MEDS: PRENATAL VITAMINS W/ FOLIC ACID TABLET (FP) PO SCH (09:58)
[2017-05-10] MEDS: NICOTINE 21 MG/24 HOURS TOPICAL PATCH TD SCH (09:58)
[2017-05-10] MEDS: BACITRACIN 0.9 GM PACKET TP SCH ×2 (09:58→21:24)
[2017-05-10] MEDS: PHENAZOPYRIDINE HCL 100 MG TABLET (FP) PO SCH ×3 (09:58→17:52)
[2017-05-10] MEDS: SULFAMETHOXAZOLE/TRIMETHOPRIM 800MG/160MG D.S. TABLET PO SCH ×2 (09:58→21:24)
[2017-05-10] MEDS: THIAMINE HCL 100 MG TABLET (FP) PO SCH (21:24)
[2017-05-10] MEDS: traZODone HCL 100 MG TABLET (FP) PO SCH (21:24)
[2017-05-11] MEDS ORDERED: PT OWN MED DRAWER 7, Y5N ONE ×3 (08:39→13:11)
[2017-05-11] MEDS: PRENATAL VITAMINS W/ FOLIC ACID TABLET (FP) PO SCH (10:13)
[2017-05-11] MEDS: CALCIUM 500MG/VIT-D 200 UNITS COMBO TABLET (FP) PO SCH ×2 (10:13→21:18)
[2017-05-11] MEDS: PHENAZOPYRIDINE HCL 100 MG TABLET (FP) PO SCH ×3 (10:13→17:20)
[2017-05-11] MEDS: NICOTINE 21 MG/24 HOURS TOPICAL PATCH TD SCH (10:13)
[2017-05-11] MEDS: SULFAMETHOXAZOLE/TRIMETHOPRIM 800MG/160MG D.S. TABLET PO SCH ×2 (10:13→21:18)
[2017-05-11] MEDS: BACITRACIN 0.9 GM PACKET TP SCH ×2 (10:13→21:19)
[2017-05-11] MEDS: traZODone HCL 100 MG TABLET (FP) PO SCH (21:18)
[2017-05-11] MEDS: THIAMINE HCL 100 MG TABLET (FP) PO SCH (21:18)
[2017-05-12] MEDS ORDERED: PT OWN MED DRAWER 7, Y5N ONE (08:54)
[2017-05-12] MEDS: NICOTINE 21 MG/24 HOURS TOPICAL PATCH TD SCH (09:51)
[2017-05-12] MEDS: PRENATAL VITAMINS W/ FOLIC ACID TABLET (FP) PO SCH (09:51)
[2017-05-12] MEDS: PHENAZOPYRIDINE HCL 100 MG TABLET (FP) PO SCH ×3 (09:51→17:30)
[2017-05-12] MEDS: CALCIUM 500MG/VIT-D 200 UNITS COMBO TABLET (FP) PO SCH ×2 (09:51→21:14)
[2017-05-12] MEDS: BACITRACIN 0.9 GM PACKET TP SCH ×2 (09:51→21:16)
[2017-05-12] MEDS: SULFAMETHOXAZOLE/TRIMETHOPRIM 800MG/160MG D.S. TABLET PO SCH ×2 (10:31→21:16)
[2017-05-12] MEDS: IBUPROFEN 400 MG TABLET (FP) PO PRN (12:06)
[2017-05-12] MEDS: THIAMINE HCL 100 MG TABLET (FP) PO SCH (21:14)
[2017-05-12] MEDS: traZODone HCL 100 MG TABLET (FP) PO SCH (21:14)
[2017-05-13] MEDS ORDERED: PT OWN MED DRAWER 7, Y5N ONE (08:51)
[2017-05-13] MEDS: CALCIUM 500MG/VIT-D 200 UNITS COMBO TABLET (FP) PO SCH ×2 (10:20→21:17)
[2017-05-13] MEDS: PRENATAL VITAMINS W/ FOLIC ACID TABLET (FP) PO SCH (10:20)
[2017-05-13] MEDS: SULFAMETHOXAZOLE/TRIMETHOPRIM 800MG/160MG D.S. TABLET PO SCH ×2 (10:20→21:18)
[2017-05-13] MEDS: PHENAZOPYRIDINE HCL 100 MG TABLET (FP) PO SCH ×3 (10:20→17:30)
[2017-05-13] MEDS: NICOTINE 21 MG/24 HOURS TOPICAL PATCH TD SCH (10:21)
[2017-05-13] MEDS: BACITRACIN 0.9 GM PACKET TP SCH ×2 (10:21→21:18)
[2017-05-13] MEDS: THIAMINE HCL 100 MG TABLET (FP) PO SCH (21:17)
[2017-05-13] MEDS: traZODone HCL 100 MG TABLET (FP) PO SCH (21:18)
[2017-05-14] MEDS: IBUPROFEN 400 MG TABLET (FP) PO PRN ×2 (07:35→22:46)
[2017-05-14] MEDS ORDERED: PT OWN MED DRAWER 7, Y5N ONE ×3 (08:53→22:52)
[2017-05-14] MEDS: PHENAZOPYRIDINE HCL 100 MG TABLET (FP) PO SCH ×2 (09:30→13:00)
[2017-05-14] MEDS: BACITRACIN 0.9 GM PACKET TP SCH ×2 (10:18→21:18)
[2017-05-14] MEDS: PRENATAL VITAMINS W/ FOLIC ACID TABLET (FP) PO SCH (10:18)
[2017-05-14] MEDS: SULFAMETHOXAZOLE/TRIMETHOPRIM 800MG/160MG D.S. TABLET PO SCH ×2 (10:18→21:18)
[2017-05-14] MEDS: CALCIUM 500MG/VIT-D 200 UNITS COMBO TABLET (FP) PO SCH ×2 (10:19→21:18)
[2017-05-14] MEDS: NICOTINE 21 MG/24 HOURS TOPICAL PATCH TD SCH (10:20)
--- NOTE | 2017-05-14 13:45 | PN ---
BHS Progress Note Note: Pt. c/o swelling left leg,has hx. of DVT in the past P : doppler of LE
[2017-05-14] MEDS: traZODone HCL 100 MG TABLET (FP) PO SCH (21:18)
[2017-05-14] MEDS: THIAMINE HCL 100 MG TABLET (FP) PO SCH (21:18)
[2017-05-15 09:58] LABS: URINE APPEARANCE SLCLOUDY; URINE BILIRUBIN NEGATIVE (NEGATIVE); URINE BLOOD NEGATIVE (NEGATIVE); URINE COLOR DKYELLOW; URINE GLUCOSE (UA) NEGATIVE (NEGATIVE); URINE KETONE NEGATIVE (NEGATIVE); URINE NITRITE NEGATIVE (NEGATIVE); URINE PROTEIN NEGATIVE (NEGATIVE); URINE UROBILINOGEN NEGATIVE E.U./dl (0.2-1.0)
[2017-05-15 09:59] LABS: URINE LEUK ESTERASE 2+ (NEGATIVE)
[2017-05-15 10:01] LABS: URINE MUCUS RARE; URINE RBC 1 /hpf (0-3); URINE WBC 3 /hpf (3-5)
[2017-05-15] MEDS: NICOTINE 21 MG/24 HOURS TOPICAL PATCH TD SCH (10:17)
[2017-05-15] MEDS: BACITRACIN 0.9 GM PACKET TP SCH ×2 (10:18→21:23)
[2017-05-15] MEDS: CALCIUM 500MG/VIT-D 200 UNITS COMBO TABLET (FP) PO SCH ×2 (10:18→21:23)
[2017-05-15] MEDS: SULFAMETHOXAZOLE/TRIMETHOPRIM 800MG/160MG D.S. TABLET PO SCH ×2 (10:18→21:23)
[2017-05-15] MEDS: PRENATAL VITAMINS W/ FOLIC ACID TABLET (FP) PO SCH (10:18)
[2017-05-15] MEDS: IBUPROFEN 400 MG TABLET (FP) PO PRN (19:36)
[2017-05-15] MEDS: traZODone HCL 100 MG TABLET (FP) PO SCH (21:23)
[2017-05-15] MEDS: THIAMINE HCL 100 MG TABLET (FP) PO SCH (21:23)
[2017-05-16] MEDS: IBUPROFEN 400 MG TABLET (FP) PO PRN (09:18)
[2017-05-16] MEDS: PRENATAL VITAMINS W/ FOLIC ACID TABLET (FP) PO SCH (09:59)
[2017-05-16] MEDS: CALCIUM 500MG/VIT-D 200 UNITS COMBO TABLET (FP) PO SCH ×2 (09:59→21:17)
[2017-05-16] MEDS: SULFAMETHOXAZOLE/TRIMETHOPRIM 800MG/160MG D.S. TABLET PO SCH ×2 (10:00→21:17)
[2017-05-16] MEDS: NICOTINE 21 MG/24 HOURS TOPICAL PATCH TD SCH (10:00)
[2017-05-16] MEDS: BACITRACIN 0.9 GM PACKET TP SCH ×2 (10:00→21:18)
[2017-05-16] MEDS: THIAMINE HCL 100 MG TABLET (FP) PO SCH (21:17)
[2017-05-16] MEDS: traZODone HCL 100 MG TABLET (FP) PO SCH (21:17)
[2017-05-16] MEDS: HYDROCORTISONE 1% TOPICAL CREAM 30 GM TUBE TP SCH (21:18)
[2017-05-17] MEDS ORDERED: PT OWN MED DRAWER 7, Y5N ONE ×2 (08:22→18:30)
[2017-05-17] MEDS: SULFAMETHOXAZOLE/TRIMETHOPRIM 800MG/160MG D.S. TABLET PO SCH (10:20)
[2017-05-17] MEDS: BACITRACIN 0.9 GM PACKET TP SCH ×2 (10:20→21:17)
[2017-05-17] MEDS: PRENATAL VITAMINS W/ FOLIC ACID TABLET (FP) PO SCH (10:21)
[2017-05-17] MEDS: HYDROCORTISONE 1% TOPICAL CREAM 30 GM TUBE TP SCH ×2 (10:21→21:17)
[2017-05-17] MEDS: CALCIUM 500MG/VIT-D 200 UNITS COMBO TABLET (FP) PO SCH ×2 (10:21→21:17)
[2017-05-17] MEDS: LIDOCAINE 5% TOPICAL PATCH TP SCH (15:22)
[2017-05-17] MEDS: traZODone HCL 100 MG TABLET (FP) PO SCH (21:17)
[2017-05-17] MEDS: THIAMINE HCL 100 MG TABLET (FP) PO SCH (21:17)
[2017-05-17] MEDS: LIDOCAINE PATCH REMOVAL MC SCH (21:18)
[2017-05-18] MEDS: LIDOCAINE 5% TOPICAL PATCH TP SCH (09:28)
[2017-05-18] MEDS: BACITRACIN 0.9 GM PACKET TP SCH ×2 (09:28→21:24)
[2017-05-18] MEDS: CALCIUM 500MG/VIT-D 200 UNITS COMBO TABLET (FP) PO SCH ×2 (09:28→21:24)
[2017-05-18] MEDS: PRENATAL VITAMINS W/ FOLIC ACID TABLET (FP) PO SCH (09:28)
[2017-05-18] MEDS: HYDROCORTISONE 1% TOPICAL CREAM 30 GM TUBE TP SCH ×2 (09:29→21:25)
[2017-05-18] MEDS: THIAMINE HCL 100 MG TABLET (FP) PO SCH (21:24)
[2017-05-18] MEDS: traZODone HCL 100 MG TABLET (FP) PO SCH (21:24)
[2017-05-18] MEDS: LIDOCAINE PATCH REMOVAL MC SCH (21:24)
[2017-05-19] MEDS: IBUPROFEN 400 MG TABLET (FP) PO PRN (06:40)
[2017-05-19] MEDS: LIDOCAINE 5% TOPICAL PATCH TP SCH (09:49)
[2017-05-19] MEDS: BACITRACIN 0.9 GM PACKET TP SCH ×2 (09:49→21:23)
[2017-05-19] MEDS: PRENATAL VITAMINS W/ FOLIC ACID TABLET (FP) PO SCH (09:50)
[2017-05-19] MEDS: CALCIUM 500MG/VIT-D 200 UNITS COMBO TABLET (FP) PO SCH ×2 (09:50→21:23)
[2017-05-19] MEDS: HYDROCORTISONE 1% TOPICAL CREAM 30 GM TUBE TP SCH ×2 (10:11→21:24)
[2017-05-19] MEDS ORDERED: PT OWN MED DRAWER 7, Y5N ONE ×2 (10:13→20:12)
[2017-05-19] MEDS: LIDOCAINE PATCH REMOVAL MC SCH (21:23)
[2017-05-19] MEDS: THIAMINE HCL 100 MG TABLET (FP) PO SCH (21:23)
[2017-05-19] MEDS: traZODone HCL 100 MG TABLET (FP) PO SCH (21:23)
[2017-05-20 06:43] VITALS: BP 119/78; PULSE 93; TEMP 97.5
--- NOTE | 2017-05-20 09:37 | PN ---
BHS Progress Note Note: Patient left the unit today AMA.See staff notes for details.
== END 2017-05-20 08:46 | disposition left against medical advice (07) | DRG 770 ==
LOC: YASAS 12:04 → Y3E 12:05
PROVIDERS: ADMIT Psychiatry & Neurology Psychiatry; ATTEND Psychiatry & Neurology Psychiatry
PROC: HZ42ZZZ Group Counseling for Substance Abuse Treatment, Cognitive-Behavioral (ICD-10-PCS; principal; 2017-05-06)
DX: F10.20 Alcohol dependence, uncomplicated (principal); F14.20 Cocaine dependence, uncomplicated; F17.210 Nicotine dependence, cigarettes, uncomplicated; F19.24 Other psychoactive substance dependence with psychoactive substance-induced mood disorder; S90.422A Blister (nonthermal), left great toe, initial encounter; X58.XXXA Exposure to other specified factors, initial encounter; Y93.9 Activity, unspecified; Y92.9 Unspecified place or not applicable; M79.89 Other specified soft tissue disorders; Z86.718 Personal history of other venous thrombosis and embolism
CPT/HCPCS: 36415; 81003; 81015; 87389; 90732; 93970-TC; G0009